=== PATIENT | female | born 2000 | race Hispanic/Latino ===

== ENCOUNTER 2019-12-17 02:49 | Inpatient (IN) | payer MEDICAID, OTHER ==
[~2019-12-17] VITALS: Ht 160 cm; Wt 83.9 kg
[2019-12-17] MEDS ORDERED: LACTATED RINGERS 1000ML 1,000 ML IV PRN ×2 (02:58→03:54)
[2019-12-17] MEDS ORDERED: AMPICILLIN 2GM+NS 100ML 100 ML IV SCH (03:45)
[2019-12-17] MEDS ORDERED: OXYTOCIN-LR 20 UNITS/1000 ML 1,000 ML IV SCH (04:00)
[2019-12-17 04:08] LABS: HEMATOCRIT 30.2 % (36-48); MEAN CORPUSCULAR HEMOGLOBIN 16.7 pg (27.0-33.0); MEAN CORPUSCULAR HGB CONC 27.2 g/dL (32.0-36.0); MEAN CORPUSCULAR VOLUME 61.4 fL (80-100); NUCLEATED RED BLOOD CELLS 0.4 % (0.0-0.19); PLATELET COUNT (AUTO) 430 K/uL (130-400); RED BLOOD CELL COUNT(AUTO) 4.92 MIL/uL (4.00-5.50); RED CELL DISTRIBUTION WIDTH 22.2 % (11.0-15.5); WHITE BLOOD COUNT (AUTO) 12.8 K/uL (4.8-10.8)
[2019-12-17] MEDS ORDERED: ROPIVACAINE 0.2% 100ML VIAL 100 ML EP SCH (04:15)
[2019-12-17] MEDS ORDERED: NALOXONE HCL 0.4 MG/1 ML ML IV PRN (04:15)
[2019-12-17] MEDS ORDERED: MEPERIDINE-PF 50 MG/ML SYG IVP ONE (04:15)
[2019-12-17] MEDS ORDERED: LACTATED RINGERS 500 ML 500 ML IV PRN (04:15)
[2019-12-17] MEDS ORDERED: EPHEDRINE SULFATE 50 MG/ML AMPULE IVP PRN (04:15)
[2019-12-17] MEDS ORDERED: MEPERIDINE-PF 50 MG/ML SYG ONE (04:34)
[2019-12-17 04:54] LABS: APPEARANCE,URINE Clear (CLEAR); BILIRUBIN,URINE Negative (NEGATIVE); COLOR,URINE Yellow (YELLOW); GLUCOSE, URINE (UA) Negative (NEGATIVE); KETONES,URINE Negative (NEGATIVE); LEUKOCYTE ESTERASE ,URINE Trace (NEGATIVE); NITRATE,URINE Negative (NEGATIVE); OCCULT BLOOD,URINE Nonhemolyzed Trace (NEGATIVE); PROTEIN,URINE Trace mg/dL (NEGATIVE)
[2019-12-17 05:01] LABS: AMPHET/METH SCREEN,URINE NEGATIVE (NEGATIVE); BARBITURATE SCREEN, URINE NEGATIVE (NEGATIVE); BENZODIAZEPINES SCREEN,URINE NEGATIVE (NEGATIVE); CANNABINOID SCREEN,URINE NEGATIVE (NEGATIVE); COCAINE SCREEN,URINE NEGATIVE (NEGATIVE); OPIATE SCREEN,URINE NEGATIVE (NEGATIVE); PHENCYCLIDINE SCREEN,URINE NEGATIVE (NEGATIVE)
[2019-12-17] MEDS ORDERED: FENTANYL CITRATE PF 50 MCG/1 ML 2ML VIAL ONE (05:07)
[2019-12-17] MEDS ORDERED: LIDOCAINE 2%-EPI 1:200,000 20 ML VIAL IJ ONE (05:35)
[2019-12-17 06:06] LABS: BACTERIA,URINE Few /HPF (None Seen); MUCUS,URINE Rare LPF (None Seen)
[2019-12-17] MEDS ORDERED: DIPH,PERTUSS(ACELL),TET VAC/PF 0.5 ML VIAL IM PRN (07:00)
[2019-12-17] MEDS ORDERED: BENZOCAINE/LANOLIN/ALOE VERA 60 ML AEROSOL TP PRN (07:00)
[2019-12-17] MEDS ORDERED: ACETAMINOPHEN-CODEINE 300/30MG TAB PO PRN (07:00)
[2019-12-17] MEDS ORDERED: LANOLIN 30GM OINTMENT TP PRN (07:00)
[2019-12-17] MEDS ORDERED: WITCH HAZEL 1 PAD TP PRN (07:00)
[2019-12-17] MEDS ORDERED: AMPICILLIN 1GM+NS 50ML 50 ML IV SCH (08:00)
[2019-12-17 09:05] VITALS: BP 126/84
[2019-12-17 10:01] LABS: RAPID PLASMA REAGIN NONREACTIVE (NONREACTIVE)
[2019-12-17] MEDS: DOCUSATE SODIUM 100 MG CAP PO SCH ×2 (10:01→21:36)
[2019-12-17] MEDS: IBUPROFEN 600 MG TABLET PO PRN ×2 (10:02→21:38)
[2019-12-17] MEDS: OXYTOCIN-LR 20 UNITS/1000 ML 1,000 ML IV SCH (10:41)
[2019-12-17 11:38] VITALS: BP 113/68
--- NOTE | 2019-12-17 15:00 | NUR ---
RAF Navarro in met with pt. who is holding baby; spouse Jordan Barcenas at bedside. Pt. reported that this is second / delivery and has not named baby as of this time. Other child is 15mos old and currently being cared for by grandmother. Pt. and spouse currently reside with aunt in [place] but had been residing in [place]. Pt. reportedly received PNC in [place]. Pt. denied any use of illicit substances, tobacco or etoh. Pt. denied any history of mental illness. Pt. denied any history of post depression, denied signs/symptoms of depression, suicidal thoughts/ideations. Pt. denied any history of domestic violence. Pt. is not employed; spouse is employed with construction. All utilities reportedly connected in the home and couple has own transportation. Pt. to breast feed baby; no WIC at this time and carseat reportedly in place. Floor Coverings Installer elected: Dr. Hebert Ely/[place]. provided pt. with list of community resources/clinics, etc. Pt. verbalized no SS needs or concerns. DCP: Return home with baby when medically cleared. Addendum: 12/17/19 at 1512 by VITOR MIRANDA Amended: Links added.
[2019-12-17 16:23] VITALS: BP 98/50
[2019-12-17 19:54] VITALS: BP 108/63
[2019-12-17 23:31] VITALS: BP 106/52
[2019-12-18 03:39] VITALS: BP 101/56
[2019-12-18] MEDS: OXYTOCIN-LR 20 UNITS/1000 ML 1,000 ML IV SCH (07:00)
[2019-12-18 07:27] VITALS: BP 92/45
[2019-12-18] MEDS: DOCUSATE SODIUM 100 MG CAP PO SCH ×2 (08:18→20:50)
[2019-12-18] MEDS: IBUPROFEN 600 MG TABLET PO PRN ×3 (08:19→20:52)
[2019-12-18 10:12] LABS: HEPATITIS Bs ANTIGEN SCREEN P Negative (Negative)
[2019-12-18 11:24] VITALS: BP 120/71
--- NOTE | 2019-12-18 14:00 | NUR ---
C/O HAVING HEADACHE AND WAS MEDICATED WITH MOTRIN 600MGS AND APPLIED ABDOMINAL BINDER ORDERED BY ANU MARQUEZ CRNA TO HELP WITH SPINAL HEADACHE.
[2019-12-18] MEDS ORDERED: MEASLES/MUMPS/RUBELLA VACCINE, LIVE 0.5 ML/VIAL SQ ONE ×2 (14:03→15:30)
--- NOTE | 2019-12-18 16:00 | NUR ---
DENIES ANY FURTHER HEADACHE AND BONDING WELL WITH .
[2019-12-18 16:04] VITALS: BP 107/65
--- NOTE | 2019-12-18 19:15 | NUR ---
REPORT GIVEN TO Nikhil BINGHAM RN AND PATIENT CARE TRANSFERED AT THIS TIME.
[2019-12-18 19:28] VITALS: BP 105/52
[2019-12-18] MEDS: PROMETHAZINE HCL 25 MG/ML 1ML AMPULE IM SCH (22:38)
[2019-12-18 23:34] VITALS: BP 110/71
[2019-12-19 02:57] VITALS: BP 110/63
[2019-12-19] MEDS: PROMETHAZINE HCL 25 MG/ML 1ML AMPULE IM SCH (05:06)
[2019-12-19 07:17] VITALS: BP 97/59
--- NOTE | 2019-12-19 08:30 | NUR ---
DR. PEREYRA ROUNDED AND DISCHARGED PATIENT TO HOME. PATIENT STABLE. PT TO FOLLOW UP WITH DR. MARTINEZ IN ONE WEEK.
[2019-12-19] MEDS: DOCUSATE SODIUM 100 MG CAP PO SCH (08:57)
[2019-12-19] MEDS: IBUPROFEN 600 MG TABLET PO PRN (08:58)
--- NOTE | 2019-12-19 10:30 | NUR ---
DISCHARGE INSTRUCTIONS GIVEN AND BABY BEING TAKEN AT THIS TIME FOR ASSESSMENT FOR DISCHARGE. PATIENT IS STABLE AND HAS BEEN BONDING WELL WITH BABY AND WELL.
[2019-12-19 11:14] VITALS: BP 120/77
--- NOTE | 2019-12-19 12:40 | NUR ---
PATIENT WAS TAKEN VIA W/C CARRYING BABY IN ARMS AND WAS DISCHARGED TO SPOUSE IN STABLE CONDITION. PATIENT DENIES PAIN.
--- NOTE | 2019-12-19 12:40 | NUR ---
PATIENT WAS TAKEN VIA W/C TO FAMILY VEHICLE AND WAS DISCHARGED TO SPOUSE WITH BABY BOTH IN STABLE CONDITION. PATIENT DENIES PAIN.
== END 2019-12-19 12:40 | disposition home or self-care (01) | DRG 807 ==
LOC: EDH 02:49 → LDH 02:50 → OBSVTOIN 02:50 → WSH 09:04
PROC: 10E0XZZ Delivery of Products of Conception, External Approach (ICD-10-PCS; principal; 2019-12-17)
PROC: 00HU33Z Insertion of Infusion Device into Spinal Canal, Percutaneous Approach (ICD-10-PCS; 2019-12-17)
PROC: 3E0R3BZ Introduction of Anesthetic Agent into Spinal Canal, Percutaneous Approach (ICD-10-PCS; 2019-12-17)
PROC: 3E0234Z Introduction of Serum, Toxoid and Vaccine into Muscle, Percutaneous Approach (ICD-10-PCS; 2019-12-18)
PROC: 3E0134Z Introduction of Serum, Toxoid and Vaccine into Subcutaneous Tissue, Percutaneous Approach (ICD-10-PCS; 2019-12-18)
DX: O80 Encounter for full-term uncomplicated delivery (principal); Z37.0 Single live birth; Z3A.39 39 weeks gestation of pregnancy; Z23 Encounter for immunization
CPT/HCPCS: 36415; 80305; 81001; 85027; 86592; 86701; 86850; 86900; 86901; 87340; 87390; 90707; 90715; A4314; A4351; G0378; J0290; J2175; J2590; J3010; J3490; J7120

== ENCOUNTER 2021-06-27 06:35 | Observation (INO) | payer MEDICAID, OTHER ==
[~2021-06-27] VITALS: Ht 165.1 cm; Wt 84.4 kg
[2021-06-27 06:47] VITALS: BP 122/56
[2021-06-27 08:09] LABS: APPEARANCE,URINE Clear (CLEAR); BILIRUBIN,URINE Negative (NEGATIVE); COLOR,URINE Yellow (YELLOW); GLUCOSE, URINE (UA) Negative (NEGATIVE); KETONES,URINE Negative (NEGATIVE); LEUKOCYTE ESTERASE ,URINE Negative (NEGATIVE); NITRATE,URINE Negative (NEGATIVE); OCCULT BLOOD,URINE Negative (NEGATIVE); PROTEIN,URINE Negative (NEGATIVE); UROBILINOGEN,URINE 0.2 mg/dL (0.2-1.0)
[2021-06-27 08:16] LABS: AMPHET/METH SCREEN,URINE NEGATIVE (NEGATIVE); BARBITURATE SCREEN, URINE NEGATIVE (NEGATIVE); BENZODIAZEPINES SCREEN,URINE NEGATIVE (NEGATIVE); CANNABINOID SCREEN,URINE NEGATIVE (NEGATIVE); COCAINE SCREEN,URINE NEGATIVE (NEGATIVE); OPIATE SCREEN,URINE NEGATIVE (NEGATIVE); PHENCYCLIDINE SCREEN,URINE NEGATIVE (NEGATIVE)
[2021-06-28] MEDS ORDERED: PREN1COM14 PO ×2 (16:49)
== END 2021-06-27 09:10 | disposition home or self-care (01) ==
LOC: EDH 06:35 → LDH 06:49
PROVIDERS: ADMIT Obstetrics & Gynecology; ATTEND Obstetrics & Gynecology
DX: O62.9 Abnormality of forces of labor, unspecified (principal); Z3A.39 39 weeks gestation of pregnancy; Z79.899 Other long term (current) drug therapy
CPT/HCPCS: 59025; 76805; 80305; 81003; G0378 ×2; G0379

== ENCOUNTER 2021-06-28 07:52 | Inpatient (IN) | payer OTHER ==
[~2021-06-28] VITALS: Ht 152.4 cm; Wt 84.8 kg
[2021-06-28 08:26] LABS: APPEARANCE,URINE Clear (CLEAR); BILIRUBIN,URINE Negative (NEGATIVE); COLOR,URINE Yellow (YELLOW); GLUCOSE, URINE (UA) Negative (NEGATIVE); KETONES,URINE Negative (NEGATIVE); LEUKOCYTE ESTERASE ,URINE Trace (NEGATIVE); NITRATE,URINE Negative (NEGATIVE); OCCULT BLOOD,URINE Negative (NEGATIVE); PH,URINE 7.5 (5.0-8.0); PROTEIN,URINE Negative (NEGATIVE); UROBILINOGEN,URINE 0.2 mg/dL (0.2-1.0)
[2021-06-28 08:32] LABS: AMPHET/METH SCREEN,URINE NEGATIVE (NEGATIVE); BARBITURATE SCREEN, URINE NEGATIVE (NEGATIVE); BENZODIAZEPINES SCREEN,URINE NEGATIVE (NEGATIVE); CANNABINOID SCREEN,URINE NEGATIVE (NEGATIVE); COCAINE SCREEN,URINE NEGATIVE (NEGATIVE); OPIATE SCREEN,URINE NEGATIVE (NEGATIVE); PHENCYCLIDINE SCREEN,URINE NEGATIVE (NEGATIVE)
[2021-06-28 08:46] LABS: BACTERIA,URINE Rare /HPF (None Seen); RBC,URINE 0-1 /HPF (0-1); SQUAMOUS EPITHELIAL CELL,UR Few /HPF (0-2); WBC,URINE 0-1 /HPF (0-1)
[2021-06-28] MEDS ORDERED: LACTATED RINGERS 1000ML 1,000 ML IV PRN (09:00)
[2021-06-28] MEDS ORDERED: OXYTOCIN-LR 20 UNITS/1000 ML 1,000 ML IV SCH ×2 (09:00→12:30)
[2021-06-28] MEDS ORDERED: LACTATED RINGERS 500 ML 500 ML IV PRN (09:00)
[2021-06-28] MEDS ORDERED: ROPIVACAINE 0.2% 100ML VIAL 100 ML EP SCH (09:00)
[2021-06-28] MEDS ORDERED: AMPICILLIN 2GM+NS 100ML 100 ML IV SCH (09:00)
[2021-06-28] MEDS ORDERED: NALOXONE HCL 0.4 MG/1 ML ML IV PRN (09:00)
[2021-06-28] MEDS ORDERED: EPHEDRINE SULFATE 50 MG/ML AMPULE IVP PRN (09:00)
[2021-06-28 09:05] LABS: HEMATOCRIT 28.6 % (36-48); MEAN CORPUSCULAR HEMOGLOBIN 17.6 pg (27.0-33.0); MEAN CORPUSCULAR HGB CONC 28.3 g/dL (32.0-36.0); MEAN CORPUSCULAR VOLUME 62.2 fL (79-99); NUCLEATED RED BLOOD CELLS 0.2 % (0.0-0.19); PLATELET COUNT (AUTO) 352 K/uL (130-400); RED CELL DISTRIBUTION WIDTH 21.5 % (11.0-15.5); WHITE BLOOD COUNT (AUTO) 13.9 K/uL (4.8-10.8)
[2021-06-28 13:34] LABS: RAPID PLASMA REAGIN NONREACTIVE (NONREACTIVE)
[2021-06-28] MEDS ORDERED: WITCH HAZEL 1 PAD TP PRN (14:00)
[2021-06-28] MEDS ORDERED: ACETAMINOPHEN 325 MG TAB PO PRN (14:00)
[2021-06-28] MEDS ORDERED: DIPH,PERTUSS(ACELL),TET VAC/PF 0.5 ML VIAL IM PRN (14:00)
[2021-06-28] MEDS ORDERED: BENZOCAINE/LANOLIN/ALOE VERA 60 ML AEROSOL TP PRN (14:00)
[2021-06-28] MEDS ORDERED: MEASLES/MUMPS/RUBELLA VACCINE, LIVE 0.5 ML/VIAL SQ PRN (14:00)
[2021-06-28] MEDS ORDERED: ACETAMINOPHEN WITH CODEINE 1 TAB TAB PO PRN (14:00)
[2021-06-28] MEDS ORDERED: LANOLIN 30GM OINTMENT TP PRN (14:00)
[2021-06-28] MEDS: IBUPROFEN 600 MG TABLET PO PRN (15:23)
[2021-06-28] MEDS ORDERED: PREN1COM14 PO ×2 (16:49)
[2021-06-28 16:52] VITALS: BP 119/63
[2021-06-28 17:54] VITALS: BP 104/64
[2021-06-28 19:04] LABS: HEMATOCRIT 26.7 % (36-48); MEAN CORPUSCULAR HEMOGLOBIN 17.9 pg (27.0-33.0); MEAN CORPUSCULAR HGB CONC 28.8 g/dL (32.0-36.0); MEAN CORPUSCULAR VOLUME 62.2 fL (79-99); NUCLEATED RED BLOOD CELLS 0.2 % (0.0-0.19); RED BLOOD CELL COUNT(AUTO) 4.29 MIL/uL (4.00-5.50); RED CELL DISTRIBUTION WIDTH 21.2 % (11.0-15.5); WHITE BLOOD COUNT (AUTO) 20.6 K/uL (4.8-10.8)
[2021-06-28 19:25] VITALS: BP 114/58
[2021-06-28] MEDS: AMPICILLIN 1GM+NS 50ML 50 ML IV SCH (21:00)
[2021-06-28] MEDS: DOCUSATE SODIUM 100 MG CAP PO SCH (21:31)
[2021-06-28 23:53] VITALS: BP 122/69
[2021-06-29] MEDS: AMPICILLIN 1GM+NS 50ML 50 ML IV SCH ×2 (01:00→05:00)
[2021-06-29 04:05] VITALS: BP 98/62
[2021-06-29 06:41] LABS: HEMATOCRIT 26.4 % (36-48); MEAN CORPUSCULAR HEMOGLOBIN 17.5 pg (27.0-33.0); MEAN CORPUSCULAR HGB CONC 28.4 g/dL (32.0-36.0); MEAN CORPUSCULAR VOLUME 61.7 fL (79-99); NUCLEATED RED BLOOD CELLS 0.4 % (0.0-0.19); RED BLOOD CELL COUNT(AUTO) 4.28 MIL/uL (4.00-5.50); RED CELL DISTRIBUTION WIDTH 21.1 % (11.0-15.5); WHITE BLOOD COUNT (AUTO) 16.2 K/uL (4.8-10.8)
[2021-06-29 07:09] VITALS: BP 113/67
[2021-06-29] MEDS: DOCUSATE SODIUM 100 MG CAP PO SCH (08:00)
[2021-06-29] MEDS: IBUPROFEN 600 MG TABLET PO PRN (08:00)
[2021-06-29 08:16] LABS: HEPATITIS Bs ANTIGEN SCREEN P Negative (Negative)
[2021-06-29 11:21] VITALS: BP 106/44
[2021-06-29] MEDS ORDERED: FERR-72 PO ×2 (12:06)
[2021-06-29] MEDS ORDERED: IBUP-2070 PO ×2 (12:07)
== END 2021-06-29 15:10 | disposition home or self-care (01) | DRG 807 ==
LOC: EDH 07:52 → OBSVTOIN 08:02 → LDH 08:02 → WSH 17:30
PROVIDERS: ADMIT Internal Medicine; ATTEND Internal Medicine
PROC: 10E0XZZ Delivery of Products of Conception, External Approach (ICD-10-PCS; principal; 2021-06-28)
DX: O71.4 Obstetric high vaginal laceration alone (principal); Z37.0 Single live birth; Z3A.39 39 weeks gestation of pregnancy
CPT/HCPCS: 36415; 80305; 81001; 85027; 86592; 86701; 86850; 86900; 86901; 87340; 87390; A4314; G0378; J0290; J2590; J2795; J7120